=== PATIENT | male | born 1980 | race Caucasian/White ===

== ENCOUNTER 2022-09-15 20:17 | Emergency (ER) | payer SELFPAY ==
[~2022-09-15] VITALS: Ht 180.3 cm; Wt 117.3 kg
[2022-09-15 20:51] LABS: BASOPHILS # (AUTO) 0.1 X10'3 (0-0.2); EOSINOPHILS # (AUTO) 0.3 X10'3 (0-0.9); EOSINOPHILS % (AUTO) 4.1 % (0-6); HEMATOCRIT 44.3 % (42.0-52.0); HEMOGLOBIN 15.1 g/dl (14.0-17.9); LYMPHOCYTES # (AUTO) 2.5 X10'3 (1.1-4.8); LYMPHOCYTES % (AUTO) 30.9 % (21-51); MEAN CORPUSCULAR HGB CONC 34.1 g/dL (33.0-36.5); MEAN CORPUSCULAR VOLUME 90.8 FL (78-98); MEAN PLATELET VOLUME 8.1 FL (7.4-10.4); MONOCYTES # (AUTO) 0.7 X10'3 (0-0.9); MONOCYTES % (AUTO) 8.7 % (2-12); NEUTROPHILS # (AUTO) 4.4 X10'3 (1.8-7.7); NEUTROPHILS % (AUTO) 55.3 % (42-75); PLATELET COUNT 214 X10'3 (140-440); RED BLOOD COUNT 4.87 X10'6 (4.70-6.10); RED CELL DISTRIBUTION WIDTH 13.3 % (11.5-14.5)
[2022-09-15 20:59] LABS: ALANINE AMINOTRANSFERASE 39 U/L (12-78); ALBUMIN 4.7 G/DL (3.4-5.0); ALBUMIN/GLOBULIN RATIO 1.4 (1.1-1.5); ALKALINE PHOSPHATASE 67 IU/L (46-116); ANION GAP 10 (8-16); ASPARTATE AMINO TRANSFERASE 21 U/L (10-37); BILIRUBIN,TOTAL 0.3 MG/DL (0.1-1.0); BLOOD UREA NITROGEN 12 MG/DL (7-18); BUN/CREATININE RATIO 11.9 (5.4-32.0); CALCIUM 9.5 MG/DL (8.5-10.1); CHLORIDE 102 MMOL/L (99-107); CREATININE 1.01 MG/DL (0.60-1.10); GLUCOSE 97 MG/DL (70-104); MAGNESIUM 2.3 MG/DL (1.5-2.4); POTASSIUM 3.9 MMOL/L (3.5-5.1); SODIUM 138 MMOL/L (135-145); TOTAL CARBON DIOXIDE 26.2 MMOL/L (24-32); eGFR 81 ML/MIN
[2022-09-15] MEDS ORDERED: HYDROchlorothiazide 25mg tablet PO ONE (22:20)
[2022-09-15] MEDS ORDERED: losartan 50mg tablet PO SCH (22:20)
[2022-09-15] MEDS ORDERED: aspirin 325mg tablet PO ONE (22:20)
[2022-09-15 22:56] LABS: D-DIMER 0.25 MG/L FEU (0-0.50)
[2022-09-16] MEDS ORDERED: HYDR12.55 PO (00:11)
[2022-09-16] MEDS ORDERED: LOSA25TA96 PO (00:11)
[2022-09-16 00:46] VITALS: BP 174/114
== END 2022-09-16 00:51 | disposition home or self-care (01) ==
LOC: ER 20:19
DX: R07.9 Chest pain, unspecified (principal); I10 Essential (primary) hypertension; Z79.899 Other long term (current) drug therapy
CPT/HCPCS: 36415; 71045; 80053; 83735; 83880; 84484; 85025; 85379; 93005; 99285